=== PATIENT | female | born 1945 | race Caucasian/White ===

== ENCOUNTER 2019-03-27 07:51 | Observation (INO) ==
--- NOTE | 2019-03-25 14:51 | EKG Report ---
Test Performed on : 03/25/2019 2:29:41 PM Test Reason : PAT Blood Pressure : / mmHG Vent. Rate : 065 BPM Atrial Rate : 065 BPM P-R Int : 168 ms QRS Dur : 092 ms QT Int : 428 ms P-R-T Axes : 048 118 068 degrees QTc Int : 445 ms Normal sinus rhythm. with sinus arrhythmia. Right axis deviation Incomplete right bundle branch block Abnormal ECG When compared with ECG of 24-JAN-2018 07:02, Incomplete right bundle branch block is now present T wave amplitude has increased in Inferior leads Confirmed by Kalee Kapoor MD ([id number]) on 03/26/2019 8:31:48 AM
[2019-03-25 15:28] LABS: BASO# 0.03 X1000 (0.0-0.2); BASO% 0.4 % (0.0-0.8); HEMATOCRIT 44.8 % (37.0-47.0); IMM GRAN# 0.02 X1000 (0.0-0.04); IMM GRAN% 0.2 % (0.0-0.5); LYMPH# 1.96 X1000 (1.2-3.4); LYMPH% 23.8 % (20.5-51.1); MCH 28.6 PG (27-31); MCHC 31.3 g/dL (33-37); MCV 91.6 FL (81-99); MONO# 0.61 X1000 (0.11-0.59); MONO% 7.4 % (1.7-9.3); MPV 10.3 FL (7.4-10.4); NEUT% 68.2 % (42.2-75.2); PLT 218 X1000 (130-400); RBC 4.89 XMIL (4.2-5.4); RDW 15.5 % (11.5-14.5); WBC 8.22 X1000 (4.8-10.8)
[2019-03-25 15:54] LABS: AGAP 13; BUN 14 mg/dL (8-22); CALCIUM 9.2 mg/dL (8.8-10.2); CHLORIDE 100 mmol/L (98-107); COSMO 288; CREATININE 0.8 mg/dL (0.5-0.9); ESTIMATED GFR > 60; GLUCOSE 180 mg/dL (70-104); SODIUM 142 mmol/L (136-145); TCO2 29 mmol/L (25-35)
[~2019-03-27 07:51] MED LIST: DIPRIVAN 1% ONE; FENTANYL ONE
[2019-03-27] MEDS ORDERED: METHYLENE BLUE 0.5% ONE (08:31)
[2019-03-27] MEDS ORDERED: SENSORCAINE 0.5%-EPI 1:200,000 ONE (08:37)
[2019-03-27] MEDS ORDERED: REGLAN ONE (08:49)
[2019-03-27] MEDS ORDERED: 1/2 NS 500 ML ONE (08:49)
[2019-03-27] MEDS ORDERED: KEFZOL 1 GM/D5W 2 GM/100 ML IVPB ONE (08:49)
[2019-03-27] MEDS ORDERED: PEPCID ONE (08:49)
[2019-03-27] MEDS ORDERED: XYLOCAINE-MPF 2% ONE (10:09)
[2019-03-27] MEDS ORDERED: EPHEDRINE ONE (10:09)
[2019-03-27] MEDS ORDERED: QUELICIN (DOSE) ONE (10:09)
[2019-03-27] MEDS ORDERED: OFIRMEV 1000 MG/ISOTONIC SOLN 1,000 MG/100 ML BOTTLE ONE (10:09)
[2019-03-27] MEDS ORDERED: ZOFRAN ONE (10:09)
[2019-03-27] MEDS ORDERED: SODIUM CHLORIDE 0.9% 10 ML ONE (10:09)
[2019-03-27] MEDS ORDERED: ROBINUL ONE (10:33)
[2019-03-27] MEDS ORDERED: SODIUM CHLORIDE 0.9% 20 ML ONE (10:33)
[2019-03-27] MEDS ORDERED: DIPRIVAN 1% ONE (10:45)
[2019-03-27] MEDS ORDERED: PITRESSIN ONE (11:41)
[2019-03-27] MEDS ORDERED: D5 LR 1,000 ML ONE (12:33)
[2019-03-27] MEDS: DILAUDID ONE ×9 (12:34→13:22)
[2019-03-27] MEDS ORDERED: MORPHINE IV PRN ×2 (13:02)
[2019-03-27] MEDS ORDERED: SALINE LOCK IV FLUID XX ONE ×2 (13:02)
[2019-03-27] MEDS: NEURONTIN PO SCH ×4 (15:54→21:41)
[2019-03-27] MEDS: D5 LR 1,000 ML IV SCH ×2 (15:56)
[2019-03-27] MEDS: HUMULIN R SUBQ SCH ×4 (18:32→21:57)
--- NOTE | 2019-03-27 20:22 | OPERATIVE NOTE ---
PROCEDURE DATE: 03/27/2019 PREOPERATIVE DIAGNOSIS: Left breast cancer. POSTOPERATIVE DIAGNOSIS: Left breast cancer. PROCEDURE: 1. Left axillary sentinel lymph node biopsy. 2. Left total mastectomy. SURGEON: Dr. Vargas Jacome. DRYWALL APPLICATION SUPERVISOR: Danielle Torres MS 3. ANESTHESIA: General. ESTIMATED BLOOD LOSS: 100 mL. COMPLICATIONS: None apparent. SPECIMENS: Left breast and sentinel lymph nodes x2. DRAINS: Two #10 Carter-Duarte. FINDINGS: The 2 sentinel lymph nodes had an ex vivo 10 second count of greater than 30,000. The residual bed count in the axilla was negligible. Both sentinel nodes were reported to be negative on frozen section. TECHNIQUE: The patient was brought to the operating room after first undergoing nuclear medicine injection. She was placed supine on the table with the left arm abducted. General anesthesia was induced. She was prepped and draped in the usual sterile fashion. Methylene blue was then injected in the periareolar subdermal space. This was massaged into the breast for several minutes. We then proceeded to make an incision in the inferior axillary hair-bearing area with a knife, and carried this down into the subcutaneous fat sharply. We continued dissection through the clavipectoral fascia with cautery. Then, with a combination of blunt finger probing and using the gamma probe, we identified 2 separate areas of increased radiotracer activity. These were dissected out with cautery. The ex Vivo counts were as noted above. These were sent down for frozen section. When we were satisfied that there were no further bulky grossly positive nodes in the axilla or residual radiotracer of any significance in the axilla, we proceeded with the mastectomy. An elliptical incision was made around the breast and areola with a knife, and then carried down first on the superior side. We created superior mastectomy flaps up to the clavicle superiorly and down to the fascia posteriorly. We then created inferior mastectomy flaps down to the inframammary fold. I then began taking the breast off the underlying muscle with cautery from medial to lateral until we went out past the pectoralis muscle, with the tail of Crespo included. The mastectomy specimen was removed with cautery. We then irrigated the wound with saline. Hemostasis was achieved with cautery. Two separate PABLO drains were placed in the subcutaneous tissues, 1 in the axilla and 1 under the mastectomy flaps. They were brought out through two separate stab incisions below the inferior portion of the axilla and then anchored to the skin with nylon suture. The subcutaneous tissue was reapproximated with interrupted subcutaneous 3-0 Polysorb. The skin was closed with skin clips. A sterile dressing was applied. There were no apparent complications. She was awakened in stable condition and transferred to the recovery room. cc: Vargas Jacome MD
[2019-03-27] MEDS: PERIDEX MT SCH ×2 (21:41)
[2019-03-27] MEDS: NORCO-10 PO PRN ×2 (21:41)
[2019-03-27] MEDS: LOVENOX SUBQ SCH ×2 (21:43)
[2019-03-28] MEDS: NORCO-10 PO PRN ×4 (06:03→10:13)
[2019-03-28] MEDS: NEURONTIN PO SCH ×6 (06:04→20:59)
[2019-03-28 06:34] LABS: URINE SOURCE CLEAN CATCH
[2019-03-28 06:36] LABS: BILIRUBIN URINE NEGATIVE (NEGATIVE); BLOOD URINE NEGATIVE (NEGATIVE); COLOR YELLOW; GLUCOSE URINE NEGATIVE (NEGATIVE); KETONE URINE NEGATIVE (NEGATIVE); LEUKOCYTES URINE NEGATIVE (NEGATIVE); NITRITE URINE NEGATIVE (NEGATIVE); PH URINE 6.5; PROTEIN URINE NEGATIVE (NEGATIVE); SP GRAVITY URINE 1.011; TURBIDITY URINE CLEAR (CLEAR); UR EPITHELIAL CELLS <10 /HPF (<10); URINE BACTERIA NEGATIVE /HPF; URINE RBC <10 /HPF (<10); URINE WBC <10 /HPF (<10); UROBILINOGEN URINE NORMAL (NORMAL)
[2019-03-28 08:04] LABS: HEMATOCRIT 47.9 % (37.0-47.0); HEMOGLOBIN 14.6 g/dL (12.0-16.0); MCH 29.1 PG (27-31); MCHC 30.5 g/dL (33-37); MCV 95.6 FL (81-99); MPV 10.1 FL (7.4-10.4); RBC 5.01 XMIL (4.2-5.4); RDW 16.1 % (11.5-14.5); WBC 9.79 X1000 (4.8-10.8)
[2019-03-28] MEDS: PERIDEX MT SCH ×4 (08:57→20:59)
[2019-03-28] MEDS ORDERED: LASIX PO SCH ×2 (12:00)
[2019-03-28] MEDS ORDERED: LOPRESSOR PO SCH ×2 (12:00)
[2019-03-28] MEDS ORDERED: KLOR-CON PO SCH ×2 (12:00)
[2019-03-28] MEDS: HUMULIN R SUBQ SCH ×6 (12:17→17:03)
[2019-03-28] MEDS: PERCOCET-10 PO PRN ×4 (12:18→19:28)
[2019-03-28] MEDS: ZOFRAN IV PRN ×2 (12:18)
[2019-03-28] MEDS: D5 LR 1,000 ML IV SCH ×2 (16:56)
[2019-03-28] MEDS: DILAUDID IV PRN ×4 (17:09→21:07)
--- NOTE | 2019-03-28 20:51 | GENERAL SURGERY PROGRESS NOTE ---
DATE: 03/28/2019 SUBJECTIVE: The patient is doing well. She is eating without any problems. No shortness of breath or chest pain. She does complain of pain over her incision and arm. OBJECTIVE: She is afebrile. Vital signs are stable.General: She is awake, alert, orient acute distress. Chest: Dressing is clean and dry. No hematoma. PABLO drains are thin, bloody fluid. LABORATORY: Her CBC was reviewed and unremarkable. ASSESSMENT/PLAN: 72-year-old female status post left total mastectomy and sentinel lymph node biopsy. We will keep her for at least another 24 hours to try to get better pain control. I have switched her to Percocet. cc: Vargas Jacome MD
[2019-03-28] MEDS: LOVENOX SUBQ SCH ×2 (20:59)
[2019-03-29] MEDS: HUMULIN R SUBQ SCH ×4 (01:13→06:39)
[2019-03-29] MEDS: NEURONTIN PO SCH ×2 (05:30)
--- NOTE | 2019-03-29 06:25 | GENERAL SURGERY PROGRESS NOTE ---
DATE: 03/29/2019 The patient seems to be doing well. She has been hemodynamically stable. Her PABLO drains have not had much in the way of output. Her incision has a dressing intact, but seems to be without any obvious hematoma. Patient has been clinically stable. Her pain has been well controlled. I think it is safe for her to be discharged home today. We will make arrangements. cc: MD Vargas Cueva MD
[2019-03-29 08:09] VITALS: BP 143/54
[2019-03-29] MEDS: PERIDEX MT SCH ×2 (08:18)
[2019-03-29] MEDS: PERCOCET-10 PO PRN ×2 (08:18)
[2019-03-29] MEDS: ZOFRAN IV PRN ×2 (08:47)
== END 2019-03-29 10:45 | disposition home or self-care (01) ==
LOC: PAT 07:51 → 4N 07:51 → OPS 07:51
PROVIDERS: ATTEND Surgery